=== PATIENT | male | born 2000 | race Two or more races ===

== ENCOUNTER 2020-05-22 19:45 | Emergency (ER) | payer OTHER ==
[~2020-05-22] VITALS: Ht 172.7 cm; Wt 70.0 kg
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
[2020-05-22] MEDS ORDERED: KETOROLAC 30 MG/1 ML ONE (20:39)
[2020-05-22] MEDS ORDERED: METHOCARBAMOL 750 MG TABLET ONE (20:39)
[2020-05-22] MEDS ORDERED: PLEASE ENTER ALLERGIES MC SCH (21:00)
[2020-05-22] MEDS ORDERED: KETOROLAC 30 MG/1 ML IM ONE (21:00)
[2020-05-22] MEDS ORDERED: METHOCARBAMOL 750 MG TABLET PO ONE (21:00)
--- NOTE | 2020-05-22 21:02 | NUR ---
PT TO IMAGING
[2020-05-22 22:14] VITALS: BP 128/72
--- NOTE | 2020-05-22 22:14 | NUR ---
PT RETURNED FROM IMAGING. TWILA ZIMMERMAN. PT DENIES ANY NEEDS AT THIS TIME. CALL LIGHT AND PERSONAL BELONGINGS WITHIN REACH
--- NOTE | 2020-05-22 23:03 | NUR ---
Patient given discharge instructions and they have confirmed that they understand the instructions. Patient ambulatory with steady gait.
== END 2020-05-22 23:14 | disposition home or self-care (01) ==
LOC: ED 20:15
DX: S39.012A Strain of muscle, fascia and tendon of lower back, initial encounter (principal); S29.012A Strain of muscle and tendon of back wall of thorax, initial encounter; S16.1XXA Strain of muscle, fascia and tendon at neck level, initial encounter; R51.9 Headache, unspecified; V49.49XA Driver injured in collision with other motor vehicles in traffic accident, initial encounter; Y93.89 Activity, other specified; Y92.488 Other paved roadways as the place of occurrence of the external cause; Y99.8 Other external cause status
CPT/HCPCS: 72072; 72110; 72125; 73564; 73590; 96372; 99284; J1885